=== PATIENT | female | born 1995 | race Hispanic/Latino ===

== ENCOUNTER 2024-06-11 10:27 | Emergency (ER) | payer SELFPAY ==
[2024-06-11] MEDS ORDERED: ONDANSETRON 4 MG/2 ML VIAL ONE (11:11)
[2024-06-11] MEDS ORDERED: NA CHLORIDE 0.9% 1,000 ML ONE (11:11)
[2024-06-11] MEDS ORDERED: MORPHINE 4 MG/ML SYR ONE (11:11)
[2024-06-11 11:40] LABS: Absolute Eosinophils 0.1 K/uL (0-0.5); Absolute Lymphocytes (CBC) 2.3 K/uL (0.7-4.9); Absolute Monocytes 0.5 K/uL (0.1-1.3); Absolute Neutrophil 6.1 K/uL (1.8-8.0); Basophils % 0.5 % (0-1.3); Eosinophils % 0.8 % (0-4.4); Hemoglobin 12.8 g/dL (12.0-15.0); MCH 28.2 pg (27.0-35.0); MCHC 33.7 g/dL (32.0-36.0); MCV 83.8 fL (80-100); MPV 7.8 fL (7.6-11.3); Monocytes % 5.1 % (3.3-12.3); Neutrophils % 67.6 % (41.7-73.7); Nucleated Red Blood Cells % 0.1 % (0-0); Platelets 331 thou/uL (152-406); RBC Red Blood Cell Count 4.54 M/uL (3.86-4.86); Red Cell Distribution Width 14.5 % (12.1-15.2)
[2024-06-11 11:42] LABS: Specific Gravity > 1.030 (1.005-1.030)
[2024-06-11 11:44] LABS: Specific Gravity > 1.030 (1.005-1.030); Urine Bacteria <20 /HPF (<20); Urine Bilirubin NEGATIVE (Negative); Urine Blood 3+ (Negative); Urine Clarity Extremely Turbid (Clear); Urine Color Yellow (Yellow); Urine Culture Reflex Order REFLEXED; Urine Glucose NEGATIVE (Negative); Urine Ketones NEGATIVE (Negative); Urine Microscopic Reflex YN ORDER UMIC; Urine Mucus Slight /HPF (None Seen); Urine Nitrite NEGATIVE (Negative); Urine Protein TRACE (Negative); Urine Urobilinogen Normal (Normal); Urine WBC >50 /HPF (<5)
[2024-06-11 11:46] LABS: Influenza A Ag Negative; Influenza B Ag Negative; SARS-CoV-2 Antigen Rapid Res Negative (Negative)
[2024-06-11 11:53] LABS: ALT/SGPT 28 U/L (13-56); AST/SGOT 16 U/L (15-37); Albumin 3.4 g/dL (3.4-5.0); Albumin/Globulin Ratio 0.9 (1.1-1.8); Alkaline Phosphatase 100 U/L (45-117); Anion Gap 6.4 mEq/L (5.0-15.0); BUN Blood Urea Nitrogen 17 mg/dL (7-18); Bicarbonate 26 mEq/L (21-32); Bilirubin Total 0.3 mg/dL (0.2-1.0); Globulin 3.9 g/dL (2.3-3.5); Glomerular Filtration Rate 104 ml/min (=/>90); Glucose Level 88 mg/dL (74-106); Lipase 25 U/L (13-75); Potassium 3.4 mEq/L (3.5-5.1); Protein, Total 7.3 g/dL (6.4-8.2); Sodium Level 138 mEq/L (136-145)
[2024-06-11 11:55] LABS: Troponin High Sensitivity < 3.0 pg/mL (<58.9)
--- NOTE | 2024-06-11 12:30 | RAD REPORT ---
EXAM: Chest Abdomen Pelvis W Cont CLINICAL INDICATION: Female, 29 years chest pain, abd pain TECHNIQUE: CT chest, abdomen and pelvis was performed, with IV contrast, as per department protocol. Axial, sagittal and coronal reconstructions were obtained. One or more of the following dose reduction techniques were used: Automated exposure control, adjustment of the mA and/or kV according to the patient size, and/or iterative reconstruction. Unless otherwise specified, incidental findings do not require dedicated imaging follow-up. [id number]. COMPARISON: No prior exam. FINDINGS: ---THORAX--- LOWER NECK AND CHEST WALL: Visualized thyroid gland and soft tissues are normal. LUNGS AND AIRWAYS: Airways are clear. No evidence of airspace or interstitial process.No suspicious a nd/or stable pulmonary nodules. PLEURA: No pleural effusion. No pneumothorax. MEDIASTINUM AND LYMPH NODES: No mediastinal mass or fluid collection. Normal size mediastinal, hilar, and axillary lymph nodes. THORACIC AORTA: No thoracic aortic aneurysm. PULMONARY ARTERIES: Caliber is within normal limits. HEART: Normal heart size. No coronary calcifications.No significant pericardial effusion. ---ABDOMEN/PELVIS--- UPPER GI: No significant abnormality. LIVER: Hepatomegaly with steatosis. GALLBLADDER/BILE DUCTS: Cholecystectomy with moderate biliary ductal dilatation. This may be secondar y to the post-cholecystectomy state. Correlate with LFTs. If abnormal, could consider MRCP for further evaluation.?The common bile duct measures 9 mm PANCREAS: No mass, ductal dilation, or osvaldo-pancreatic fluid. SPLEEN: Unremarkable. ADRENALS: No adrenal masses. KIDNEYS AND URETERS: No hydronephrosis.No suspicious renal mass.No renal calculi. ABDOMINAL AORTA AND OTHER VESSELS: Normal caliber aorta and IVC. PERITONEUM: No abnormal free fluid. No free air. LYMPH NODES: No pathologic lymphadenopathy. ABDOMINAL WALL: Unremarkable SMALL BOWEL/COLON: Small bowel has normal course and caliber. No colonic wall thickening or pericolon ic inflammatory changes.Normal appendix. URINARY BLADDER: Underdistended but grossly unremarkable. REPRODUCTIVE ORGANS: No pathologic process. ---COMBINED--- MUSCULOSKELETAL: No acute or suspicious osseous abnormality. ADDITIONAL FINDINGS: None. IMPRESSION: No acute findings within the chest, abdomen, or pelvis. Cholecystectomy with extra hepatic biliary duct dilatation that may be related to the postcholecystec shi state. Correlate with LFTs. If abnormal, could consider MRCP for further evaluation
--- NOTE | 2024-06-11 12:47 | ER ---
Nurse's Notes [facility] Name: Shira Saab Age: 29 yrs Sex: Female : 1995 Arrival Date: 06/11/2024 Time: 10:27 Bed 18 Private MD: Diagnosis: Viral gastroenteritis Presentation: 06/11 10:31 Chief complaint: Patient states: Abdominal pain with N/V/D for 4 days. Coronavirus ll1 screen: Client denies travel out of the [place] in the last 14 days. At this time, the client does not indicate any symptoms associated with coronavirus-19. Ebola Screen: Patient denies travel to an Ebola-affected area in the 21 days before illness onset. Onset of symptoms was June 08, 2024. 10:31 Method Of Arrival: Ambulatory ll1 13:02 Initial Sepsis Screen: Does the patient meet any 2 criteria? No. Patient's initial cm10 sepsis screen is negative. Does the patient have a suspected source of infection? No. Patient's initial sepsis screen is negative. Risk Assessment: Do you want to hurt yourself or someone else? Patient reports no desire to harm self or others. 13:02 Acuity: ROD 3 cm10 Triage Assessment: 10:31 General: Appears uncomfortable, Behavior is calm, cooperative, appropriate for age, ss Reports fever for feeling ill for fatigue for. Pain: Complains of pain in abdomen Quality of pain is described as aching, crampy. GI: Reports lower abdominal pain, upper abdominal pain, cramping, diarrhea, nausea, vomiting. 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 - Infectious Disease History:: Denies. - Social history:: Smoking status: Patient/guardian denies using tobacco. Screenin:01 [facility] ED Fall Risk Assessment (Adult) History of falling in the last 3 months, cm10 including since admission No falls in past 3 months (0 pts) Confusion or Disorientation No (0 pts) Intoxicated or Sedated No (0 pts) Impaired Gait No (0 pts) Mobility Assist Device Used No (0 pt) Altered Elimination No (0 pt) Score/Fall Risk Level 0 - 2 = Low Risk Oriented to surroundings, Maintained a safe environment, Hourly rounding (assess needs \T\ fall precautionary measures) done. Abuse screen: Denies threats or abuse. Denies injuries from another. Nutritional screening: No deficits noted. Tuberculosis screening: No symptoms or risk factors identified. Assessment: 11:25 General: Appears in no apparent distress. uncomfortable, Behavior is calm, cooperative. cm10 Neuro: No deficits noted. Level of Consciousness is awake, alert, obeys commands, Oriented to person, place, time, situation, Appropriate for age. Respiratory: No deficits noted. Airway is patent Respiratory effort is even, unlabored, Respiratory pattern is regular, symmetrical. GI: Reports diarrhea. Musculoskeletal: No deficits noted. Range of motion: intact in all extremities. Vital Signs: 10:31 BP 156 / 85; Pulse 77; Resp 18; Temp 98; Pulse Ox 100% ; Weight 117.93 kg; Height 5 ft. ll1 7 in. ; Pain 10/10; 13:00 BP 102 / 64; Pulse 64; Resp 15; Pulse Ox 100% ; cm10 10:31 Body Mass Index 40.72 (117.93 kg, 170.18 cm) ll1 10:31 Pain Scale: Adult ll1 ED Course: 10:29 Patient arrived in ED. mr 10:29 Laine Epps PA-C is PHCP. sb4 10:29 Susan Patel MD is Attending Physician. sb4 10:32 Patient placed in an exam room, on a stretcher. ll1 10:41 Consuelo Mujica, RN is Primary Nurse. cm10 11:19 COVID-19 Ag + Flu A+B Ag Sent. ty 11:19 Troponin High Sensitivity Sent. ty 11:19 CBC with Diff Sent. ty 11:19 CMP Sent. ty 11:19 Lipase Sent. ty 11:20 Test, Urine Sent. ty 11:20 Urinalysis w/ reflexes Sent. ty 11:20 Initial lab(s) drawn, by me, sent to lab. Urine collected: clean catch specimen, clear, ty COVID swab sent to lab. Flu and/or RSV swab sent to lab. Inserted saline lock: 20 gauge in right antecubital area, using aseptic technique. Blood collected. Flushed with 10 mL NS. 12:11 CT Chest, Abdomen, Pelvis - W/Contrast In Process Unspecified. EDMS 13:01 Patient has correct armband on for positive identification. Provided Education on: er cm10 process and procedures.. 13:01 No provider procedures requiring assistance completed. IV discontinued, intact, cm10 bleeding controlled, No redness/swelling at site. Pressure dressing applied. 13:02 Triage completed. cm10 Administered Medications: 11:29 Drug: Ondansetron IVP 4 mg IVP once; over 2 minutes Route: IVP; Site: right antecubital;cm10 12:46 Follow up: Response: No adverse reaction cm10 11:29 Drug: morphine IVP or IV 4 mg IVP once over 4 mins Route: IVP; Infused Over: 4 mins; cm10 Site: right antecubital; 12:47 Follow up: Response: No adverse reaction cm10 11:29 Drug: NS 0.9% IV 1000 ml IV at 1 bolus Per protocol; to be given as a bolus over 60 cm10 minutes Route: IV; Rate: 1 bolus; Site: right antecubital; 12:47 Follow up: Response: No adverse reaction; IV Status: Completed infusion; IV Intake: cm10 1000ml Medication: 13:01 VIS not applicable for this client. cm10 Intake: 12:47 IV: 1000ml; Total: 1000ml. cm10 Outcome: 12:46 Discharge ordered by . kannan 13:02 Discharged to home ambulatory, with significant other, cm10 13:02 Condition: good 13:02 Discharge instructions given to patient, Instructed on discharge instructions, follow up and referral plans. medication usage, Demonstrated understanding of instructions, follow-up care, medications, Prescriptions given X 4, 13:02 Patient left the ED. cm10 Signatures: Dispatcher [employer] EDMD Sabrina Mar, Reg Reg mr BrisenoMercy, RN RN Noemí Russell RN RN ll1 Laine Epps PAMagdalena PAConsuelo Alexander RN RN cm10 Torito Freire Corrections: (The following items were deleted from the chart) 10:32 10:31 BP 156 / 85; Pulse 77bpm; Resp 18bpm; Pulse Ox 100%; 117.93 kg; Height 5 ft. 7 ll1 in.; BMI: 40.7; Pain 10, Adult; ll1
--- NOTE | 2024-06-11 12:47 | EDPHYS ---
Physician Documentation [facility] Name: Shira Saab Age: 29 yrs Sex: Female : 1995 Arrival Date: 06/11/2024 Time: 10:27 Bed 18 Private MD: ED Physician Susan Patel HPI: 06/11 10:39 This 29 yrs old Female presents to ER via Ambulatory with complaints of sb4 nausea, vomiting, diarrhea, abd pain, weakness. 10:39 The patient presents to the emergency department with nausea, vomiting, diarrhea, sb4 abdominal pain. Onset: The symptoms/episode began/occurred 4 day(s) ago. Possible causes: unknown. The symptoms are aggravated by nothing. The symptoms are alleviated by nothing. Associated signs and symptoms: Pertinent positives: fever. The patient has not experienced similar symptoms in the past. The patient has not recently seen a physician. 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 - Infectious Disease History:: Denies. - Social history:: Smoking status: Patient/guardian denies using tobacco. ROS: 10:40 Constitutional: Positive for fever, sb4 10:40 Cardiovascular: Positive for chest pain, 10:40 Respiratory: Positive for shortness of breath, 10:40 Abdomen/GI: Positive for abdominal pain, nausea, vomiting, and diarrhea, 10:40 All other systems are negative, Exam: 10:40 Head/Face: Normocephalic, atraumatic. Eyes: Extra-ocular motions intact. Periorbital sb4 areas with no swelling, redness, or edema. ENT: Mucous membranes moist. Cardiovascular: Regular rate and rhythm with a normal S1 and S2. Respiratory: No increased work of breathing, no retractions or nasal flaring. Skin: Warm, dry with normal turgor. Normal color with no rashes, no lesions, and no evidence of cellulitis. 10:40 Constitutional: The patient appears alert, awake, obese, uncomfortable, 10:40 Abdomen/GI: Inspection: abdomen appears normal, Bowel sounds: normal, Palpation: abdomen is soft and non-tender, nontender, in the right upper quadrant and left upper quadrant, Vital Signs: 10:31 BP 156 / 85; Pulse 77; Resp 18; Temp 98; Pulse Ox 100% ; Weight 117.93 kg; Height 5 ft. ll1 7 in. ; Pain 10; 13:00 BP 102 / 64; Pulse 64; Resp 15; Pulse Ox 100% ; cm10 10:31 Body Mass Index 40.72 (117.93 kg, 170.18 cm) ll1 10:31 Pain Scale: Adult ll1 MDM: 10:31 Medical Screening Exam initiated sb4 12:48 Data reviewed: vital signs, nurses notes, lab test result(s), radiologic studies, and sb4 as a result, I will discharge patient. Counseling: I had a detailed discussion with the patient and/or guardian regarding the historical points, exam findings, and any diagnostic results supporting the discharge/admit diagnosis, lab results, radiology results, the need for outpatient follow up, for definitive care, to return to the emergency department if symptoms worsen or persist or if there are any questions or concerns that arise at home. 06/11 10:38 Order name: CBC with Diff; Complete Time: 11:42 sb4 06/11 10:38 Order name: CMP; Complete Time: 12:02 sb4 06/11 10:38 Order name: Lipase; Complete Time: 12:02 sb4 06/11 10:38 Order name: Test, Urine; Complete Time: 12:02 sb4 06/11 10:38 Order name: Urinalysis w/ reflexes; Complete Time: 12:03 sb4 06/11 10:38 Order name: Troponin High Sensitivity; Complete Time: 12:02 sb4 06/11 10:38 Order name: COVID-19 Ag + Flu A+B Ag; Complete Time: 11:47 sb4 06/11 12:05 Order name: Urine Culture EDMS 06/11 10:38 Order name: CT Chest, Abdomen, Pelvis - W/Contrast; Complete Time: 12:32 sb4 06/11 10:38 Order name: IV Saline Lock; Complete Time: 11:19 sb4 06/11 10:38 Order name: Labs collected and sent; Complete Time: 11:19 sb4 06/11 12:32 Order name: PO challenge; Complete Time: 13:00 sb4 Administered Medications: 11:29 Drug: Ondansetron IVP 4 mg IVP once; over 2 minutes Route: IVP; Site: right antecubital;cm10 12:46 Follow up: Response: No adverse reaction cm10 11:29 Drug: morphine IVP or IV 4 mg IVP once over 4 mins Route: IVP; Infused Over: 4 mins; cm10 Site: right antecubital; 12:47 Follow up: Response: No adverse reaction cm10 11:29 Drug: NS 0.9% IV 1000 ml IV at 1 bolus Per protocol; to be given as a bolus over 60 cm10 minutes Route: IV; Rate: 1 bolus; Site: right antecubital; 12:47 Follow up: Response: No adverse reaction; IV Status: Completed infusion; IV Intake: cm10 1000ml Disposition: 12:48 Chart complete. sb4 Disposition Summary: 06/11/24 12:46 Discharge Ordered Notes: Location: Home sb4 Problem: new sb4 Symptoms: have improved sb4 Condition: Stable sb4 Diagnosis - Viral gastroenteritis sb4 Followup: sb4 - With: Private Physician - When: 1 week - Reason: Recheck today's complaints, Re-evaluation by your physician Discharge Instructions: - Discharge Summary Sheet sb4 - Viral Gastroenteritis, Adult, [id number] sb4 Forms: - Patient Portal Instructions sb4 - Leadership Thank You Letter sb4 Prescriptions: - Imodium A-D 2 mg Oral tablet - take 0.5 tablet ORAL route every 4 hours as needed for loose stool; do not sb4 exceed 6 mg per 24 hrs; 12 tablet; Refills: 0, Product Selection Permitted - Pepcid 20 mg Oral Tablet - take 1 tablet ORAL route every 12 hours for 5 days; 10 tablet; Refills: 0, sb4 Product Selection Permitted - dicyclomine 10 mg Oral capsule - take 1 capsule ORAL route 3 times per day PRN abdominal pain/cramps; 12 sb4 capsule; Refills: 0, Product Selection Permitted - ondansetron 8 mg Oral Tablet,disintegrating - take 1 tablet ORAL route every 8 hours; 10 tablet; Refills: 0, Product sb4 Selection Permitted Signatures: Dispatcher [employer] Noemí Evans RN RN ll1 Laine Epps PA-C PA-C sb4 Consuelo Mujica RN RN cm10
[2024-06-11 13:37] VITALS: TEMP 98; O2SAT 100
[2024-06-11 13:39] VITALS: BP 102/64
== END 2024-06-11 13:02 | disposition home or self-care (01) ==
LOC: ER 10:27
DX: A08.4 Viral intestinal infection, unspecified (principal); Z11.52 Encounter for screening for COVID-19
CPT/HCPCS: 36415; 71260; 74177; 80053; 81001; 81025; 83690; 84484; 85025; 87086; 87088; 87428; 96361; 96374; 96375; 99284; J2405; J7030; Q9967